=== PATIENT | male | born 1930 | race Caucasian/White ===

== ENCOUNTER 2020-02-20 00:48 | Inpatient (IN) | payer MEDICARE ==
[2020-02-20] VITALS (17 sets, daily range): BP systolic 88–146; BP diastolic 41–66
[~2020-02-20] VITALS: Ht 175.3 cm; Wt 81.8 kg
[~2020-02-20 00:48] MED LIST: ALBU18HF2 IH; ASPI81TA52 PO; FAMO-1 PO; FLO0.4C PO; FURO-150 PO; LATA2.5D6 OP; LOP25T PO; SIMV-42 PO; ZES10T PO
--- NOTE | 2020-02-20 01:00 | NUR ---
PT BROUGHT IN BY EMS WITH RIGHT SIDED FLANK PAIN . PT IS IN STAGE 1V CHRONIC KIDNEY DISEASE BUN 33 CR 2.43 , PT HAS A 18 GUAGE TO R AC AND 22 GUAGE TO L LOWER FOREARM BOTH FLUSHED WITH NS AND PATENT. UPON ARRIVAL PT DENIES ANY ABDOMINAL PAIN OR FLANK PAIN AT THIS TIME . SPOKE WITH DR VILLEGAS ABOUT PT NEEDING REPEAT LABS . PT IS TO BE SEEN AND assessed by md for further orders at this time .
--- NOTE | 2020-02-20 01:30 | NUR ---
pt is on 2 l o2 per NC SATS AT 93 % . PT HR 92 BP 131/67 RR 18 Pain 2/10 at this time .
[2020-02-20] MEDS ORDERED: WARF3TAB56 PO (02:28)
[2020-02-20] MEDS ORDERED: ALLO100T PO (02:28)
[2020-02-20] MEDS ORDERED: WARF-55 PO (02:28)
[2020-02-20] MEDS ORDERED: OMEG1CAP13 PO (02:28)
[2020-02-20] MEDS ORDERED: mag hydrox/Alum hydrox/simeth 30ml oral suspension PO PRN (03:30)
[2020-02-20] MEDS ORDERED: morphine 2 MG/ML inj. syringe IV PRN ×2 (03:30→17:35)
[2020-02-20] MEDS ORDERED: ondansetron/PF 4mg/2ml inj IV PRN ×2 (03:30→17:35)
[2020-02-20] MEDS: normal saline 1000ml 1,000 ML IV SCH ×2 (04:01→21:14)
[2020-02-20] MEDS ORDERED: famotidine 20mg tablet PO SCH (08:00)
[2020-02-20] MEDS: latanoprost 0.005% 2.5ml ophthalmic drops EACHEYE SCH (08:00)
[2020-02-20] MEDS ORDERED: CefTRIAXone/D5W-Rocephin 1gm 50 ML IV SCH (08:00)
[2020-02-20] MEDS ORDERED: furosemide 20MG tablet PO SCH (08:00)
[2020-02-20] MEDS: morphine 2 MG/ML inj. syringe IV PRN ×2 (08:46→15:48)
--- NOTE | 2020-02-20 09:33 | NUR ---
PAGER ID: [phone] MESSAGE: Yulisa [phone] re Mario Alberto Farrell in [id number]- [facility] called and said that blood cultures drawn there 02/18 turned positive after he left. gm- rods in aerobic bottle, one site only. Rocephin [address] [facility]
[2020-02-20 09:50] LABS: ALANINE AMINOTRANSFERASE 67 U/L (12-78); ALBUMIN 3.1 G/DL (3.4-5.0); ALKALINE PHOSPHATASE 98 IU/L (46-116); ANION GAP 13 (8-16); ASPARTATE AMINO TRANSFERASE 60 U/L (10-37); BILIRUBIN,TOTAL 0.6 MG/DL (0.1-1.0); BLOOD UREA NITROGEN 38 MG/DL (7-18); BUN/CREATININE RATIO 12.6 (5.4-32.0); CALCIUM 9.4 MG/DL (8.5-10.1); CHLORIDE 107 MMOL/L (99-107); CREATININE 3.01 MG/DL (0.60-1.10); GLUCOSE 102 MG/DL (70-104); POTASSIUM 4.5 MMOL/L (3.5-5.1); SODIUM 142 MMOL/L (135-145); TOTAL CARBON DIOXIDE 22.1 MMOL/L (24-32); TOTAL PROTEIN 6.2 G/DL (6.4-8.2); eGFR 20 ML/MIN
[2020-02-20] MEDS: allopurinol 100mg tablet PO SCH (10:26)
[2020-02-20] MEDS: metoprolol tartrate 25mg tablet PO SCH ×2 (10:27→21:03)
[2020-02-20 10:36] LABS: BASOPHILS # (AUTO) 0.1 X10'3 (0-0.2); BASOPHILS % (AUTO) 0.4 % (0-1); EOSINOPHILS % (AUTO) 0 % (0-6); LYMPHOCYTES # (AUTO) 0.5 X10'3 (1.1-4.8); LYMPHOCYTES % (AUTO) 3.3 % (21-51); MEAN CORPUSCULAR HEMOGLOBIN 31.2 PG (27.0-31.0); MEAN CORPUSCULAR HGB CONC 32.6 g/dL (33.0-36.5); MEAN CORPUSCULAR VOLUME 95.5 FL (78-98); MEAN PLATELET VOLUME 7.9 FL (7.4-10.4); MONOCYTES % (AUTO) 0.3 % (2-12); NEUTROPHILS # (AUTO) 14.6 X10'3 (1.8-7.7); PLATELET COUNT 144 X10'3 (140-440); RED CELL DISTRIBUTION WIDTH 15.3 % (11.5-14.5); WHITE BLOOD COUNT 15.2 X10'3 (4.5-11.0)
[2020-02-20] MEDS ORDERED: HYDROcodone/acetaminophen 5mg/325mg tablet PO PRN (14:25)
[2020-02-20] MEDS ORDERED: HYDROcodone/acetaminophen 10/325mg tab PO PRN (14:25)
--- NOTE | 2020-02-20 16:14 | NUR ---
PAGER ID: [phone] MESSAGE: Yulisa Onofre9 re Mr Farrell in [phone]- can you call me? BP decreased, 02 sat now 90 on 4
[2020-02-20] MEDS ORDERED: ipratropium/albuterol 3ml nebule ONE (17:06)
[2020-02-20] MEDS ORDERED: ringers solution, lacted 1,000 ML IV SCH (17:31)
[2020-02-20] MEDS ORDERED: morphine 4 MG/ML inj SYRINge IV PRN (17:35)
[2020-02-20] MEDS ORDERED: meperidine/PF 25mg/ml syringe IV PRN ×3 (17:35)
[2020-02-20] MEDS ORDERED: proCHLORperazine 10 MG/2 ml inj IV PRN (17:35)
[2020-02-20] MEDS ORDERED: iohexol 300 MG/1 ML 50ml polymer ONE (17:45)
[2020-02-20] MEDS ORDERED: fentaNYL/PF 50MCG/1 ML 2ML syringe ONE (17:53)
[2020-02-20] MEDS ORDERED: propofol inj 20 ML IV ONE (17:56)
[2020-02-20] MEDS: piperacillin/tazo 3.375gm/50ml 50 ML IV SCH (18:00)
[2020-02-20] MEDS ORDERED: sevoflurane 250ml liquid IH ONE (18:02)
[2020-02-20] MEDS ORDERED: ePHEDrine 50MG/ML INJ. ONE (18:27)
--- NOTE | 2020-02-20 18:48 | NUR ---
Patient in room ORTHO 4015. I have received report from Yulisa OVIEDO and had the opportunity to ask questions and assume patient care. Patient in OR at this time.
--- NOTE | 2020-02-20 18:56 | NUR ---
Received from OR via ORTHO BED WITH ILANNA , accompanied by Anesthesiologist SIDDHARTH and report given by Anesthesiolgist. PATIENT WITH DARKER URINE PRESENT IN CATHETER TUBING. VSS. PATIENT WITH 10L MASK ON WITH 96% SATURATIONS. SCDS DONNED. NS RUNNING AT 100. WAKENS TO COMMAND AND DENIES PAIN AT THIS TIME. Addendum: 02/20/20 at 1904 by Neptali Dunham RN, RN Amended: Links added.
--- NOTE | 2020-02-20 19:36 | NUR ---
PATIENT TAKEN TO WITH ALL BELONGINGS AND HOOKED UP TO MONITORS IN ROOM AND REPORT GIVEN TO RN WHO HAS TAKEN OVER PATIENT CARE. BED LOW, CALL LIGHT IN REACH, VSS, DRESSINGS CDI. URINE IN CATHETER IS STILL CLOUDY. VSS AT THIS TIME. ALERT AND ORIENTED AT THIS TIME. PREET EDEN PRESENT TO ACCEPT CARE OF THE PATIENT. CARE TURNED OVER AND ALL QUESTIONS ANSWERED. Addendum: 02/20/20 at 1955 by Neptali Dudley - PREET OVIEDO Amended: Links added.
--- NOTE | 2020-02-20 19:40 | NUR ---
Received report from Neptali OVIEDO from recovery. Call light placed within reach, bed in locked and low position.
[2020-02-20] MEDS: ipratropium/albuterol 3ml nebule NEB SCH (20:34)
[2020-02-20] MEDS ORDERED: warfarin 3mg tablet PO ONE (21:00)
[2020-02-20] MEDS ORDERED: warfarin 3mg tablet PO SCH (21:00)
[2020-02-20] MEDS: atorvastatin 10mg tablet PO SCH (21:02)
[2020-02-20] MEDS: famotidine 10mg tablet PO SCH (21:02)
[2020-02-20] MEDS: lactobacillus rhamnosus 10,000 MMU CELLS/CAPSULE PO SCH (21:02)
--- NOTE | 2020-02-20 23:50 | NUR ---
I heard a loud thump and found patient on the ground by his bed; he was on his but with both legs out in front of him. He had both SCD sleeves on and connected to the SCD machine. There was a pool of dark blood on the floor coming from his IV site to the right arm; his IV tubing had split apart, that is why the site was bleeding but the IV site was intact. I asked the patient why he got out of bed ,and he responded that he had to urinate; I discovered his F/C disconnected from the catheter tubing and bag. Cleaned the port of the F/C with chloreseptic disinfectant and placed new F/C tubing and bag and it is draining clear yellow urine. Vitals remain unchanged and he was assisted to the bed with two assist, once in bed we discovered two scrapes that where new to him. Large area to upper left back and smaller one to right lower back/ but. Pictures taken and wounds cleaned and dressings applied. Dr. Wright the night hospitalist was made aware and he asked that we check his orthostatic vitals and notify if positive and to hold b/p Meds for sbp<110.
[2020-02-21] VITALS (7 sets, daily range): BP systolic 93–139; BP diastolic 46–64
[2020-02-21] MEDS ORDERED: piperacillin/tazo 3.375gm/50ml 50 ML IV SCH
[2020-02-21] MEDS: ipratropium/albuterol 3ml nebule NEB SCH ×6 (00:04→23:00)
[2020-02-21] MEDS: piperacillin/tazo 3.375gm/50ml 50 ML IV SCH ×4 (00:26→23:36)
--- NOTE | 2020-02-21 06:39 | NUR ---
Problems reprioritized. Patient report given, questions answered & plan of care reviewed with Yulisa OVIEDO.
[2020-02-21 06:59] LABS: BASOPHILS % (AUTO) 0.3 % (0-1); EOSINOPHILS % (AUTO) 0.2 % (0-6); HEMATOCRIT 34.1 % (42.0-52.0); HEMOGLOBIN 11.1 g/dl (14.0-17.9); LYMPHOCYTES # (AUTO) 1.2 X10'3 (1.1-4.8); LYMPHOCYTES % (AUTO) 8.9 % (21-51); MEAN CORPUSCULAR HEMOGLOBIN 31.2 PG (27.0-31.0); MEAN CORPUSCULAR HGB CONC 32.7 g/dL (33.0-36.5); MEAN CORPUSCULAR VOLUME 95.6 FL (78-98); MEAN PLATELET VOLUME 8.9 FL (7.4-10.4); MONOCYTES # (AUTO) 0.6 X10'3 (0-0.9); MONOCYTES % (AUTO) 4.5 % (2-12); NEUTROPHILS # (AUTO) 11.8 X10'3 (1.8-7.7); NEUTROPHILS % (AUTO) 86.1 % (42-75); PLATELET COUNT 84 X10'3 (140-440); RED BLOOD COUNT 3.57 X10'6 (4.70-6.10); RED CELL DISTRIBUTION WIDTH 15.7 % (11.5-14.5); WHITE BLOOD COUNT 13.7 X10'3 (4.5-11.0)
[2020-02-21 07:13] LABS: ALANINE AMINOTRANSFERASE 39 U/L (12-78); ALBUMIN 2.3 G/DL (3.4-5.0); ALBUMIN/GLOBULIN RATIO 0.8 (1.1-1.5); ALKALINE PHOSPHATASE 81 IU/L (46-116); ANION GAP 11 (8-16); ASPARTATE AMINO TRANSFERASE 31 U/L (10-37); BILIRUBIN,TOTAL 0.5 MG/DL (0.1-1.0); BLOOD UREA NITROGEN 50 MG/DL (7-18); BUN/CREATININE RATIO 12.7 (5.4-32.0); CALCIUM 8.7 MG/DL (8.5-10.1); CHLORIDE 108 MMOL/L (99-107); CREATININE 3.94 MG/DL (0.60-1.10); GLUCOSE 85 MG/DL (70-104); POTASSIUM 4.7 MMOL/L (3.5-5.1); SODIUM 141 MMOL/L (135-145); TOTAL CARBON DIOXIDE 22.2 MMOL/L (24-32); TOTAL PROTEIN 5.1 G/DL (6.4-8.2); eGFR 15 ML/MIN
[2020-02-21 07:39] LABS: ANISOCYTOSIS 1+; PLATELET ESTIMATE DECREASED; TOTAL CELLS COUNTED 100
[2020-02-21 07:40] LABS: TOXIC GRANULATION 2+; TOXIC VACUOLATION 1+
[2020-02-21] MEDS: latanoprost 0.005% 2.5ml ophthalmic drops EACHEYE SCH (08:39)
[2020-02-21] MEDS: lactobacillus rhamnosus 10,000 MMU CELLS/CAPSULE PO SCH ×2 (08:41→20:41)
[2020-02-21] MEDS: allopurinol 100mg tablet PO SCH (08:42)
[2020-02-21] MEDS: metoprolol tartrate 25mg tablet PO SCH ×2 (08:42→20:42)
[2020-02-21] MEDS: famotidine 10mg tablet PO SCH ×2 (08:43→20:41)
[2020-02-21] MEDS ORDERED: furosemide 20MG tablet PO SCH (08:58)
[2020-02-21] MEDS: furosemide 20MG tablet PO SCH (12:48)
[2020-02-21] MEDS: normal saline 1000ml 1,000 ML IV SCH (17:10)
--- NOTE | 2020-02-21 18:40 | NUR ---
Patient in room ORTHO 4015. I have received report from Yulisa OVIEDO and had the opportunity to ask questions and assume patient care.
[2020-02-21] MEDS: atorvastatin 10mg tablet PO SCH (20:42)
[2020-02-22 06:00] VITALS: BP 132/70
[2020-02-22 06:36] LABS: ALANINE AMINOTRANSFERASE 31 U/L (12-78); ALBUMIN 2.3 G/DL (3.4-5.0); ALBUMIN/GLOBULIN RATIO 0.7 (1.1-1.5); ALKALINE PHOSPHATASE 88 IU/L (46-116); ANION GAP 11 (8-16); ASPARTATE AMINO TRANSFERASE 24 U/L (10-37); BILIRUBIN,TOTAL 0.7 MG/DL (0.1-1.0); BLOOD UREA NITROGEN 52 MG/DL (7-18); BUN/CREATININE RATIO 13.7 (5.4-32.0); CALCIUM 9.2 MG/DL (8.5-10.1); CHLORIDE 107 MMOL/L (99-107); GLUCOSE 98 MG/DL (70-104); POTASSIUM 4.3 MMOL/L (3.5-5.1); SODIUM 138 MMOL/L (135-145); TOTAL CARBON DIOXIDE 20.5 MMOL/L (24-32); TOTAL PROTEIN 5.5 G/DL (6.4-8.2); eGFR 15 ML/MIN
--- NOTE | 2020-02-22 06:39 | NUR ---
Problems reprioritized. Patient report given, questions answered & plan of care reviewed with Yulisa OVIEDO.
[2020-02-22 06:43] LABS: BASOPHILS % (AUTO) 0.4 % (0-1); EOSINOPHILS # (AUTO) 0.1 X10'3 (0-0.9); EOSINOPHILS % (AUTO) 1.3 % (0-6); HEMATOCRIT 32.3 % (42.0-52.0); HEMOGLOBIN 10.9 g/dl (14.0-17.9); LYMPHOCYTES # (AUTO) 0.7 X10'3 (1.1-4.8); MEAN CORPUSCULAR HEMOGLOBIN 31.7 PG (27.0-31.0); MEAN CORPUSCULAR HGB CONC 33.7 g/dL (33.0-36.5); MEAN CORPUSCULAR VOLUME 94.2 FL (78-98); MONOCYTES # (AUTO) 0.4 X10'3 (0-0.9); MONOCYTES % (AUTO) 4.3 % (2-12); NEUTROPHILS # (AUTO) 7.8 X10'3 (1.8-7.7); PLATELET COUNT 75 X10'3 (140-440); RED BLOOD COUNT 3.42 X10'6 (4.70-6.10); RED CELL DISTRIBUTION WIDTH 15.4 % (11.5-14.5); WHITE BLOOD COUNT 9.1 X10'3 (4.5-11.0)
[2020-02-22] MEDS: ipratropium/albuterol 3ml nebule NEB SCH ×5 (07:32→23:38)
[2020-02-22] MEDS: magnesium hydroxide 30ml (MOM) UD suspension PO PRN (08:29)
[2020-02-22] MEDS: latanoprost 0.005% 2.5ml ophthalmic drops EACHEYE SCH (08:36)
[2020-02-22] MEDS: piperacillin/tazo 3.375gm/50ml 50 ML IV SCH ×3 (08:36→23:58)
[2020-02-22] MEDS: lactobacillus rhamnosus 10,000 MMU CELLS/CAPSULE PO SCH ×2 (08:36→20:13)
[2020-02-22] MEDS: famotidine 10mg tablet PO SCH ×2 (08:37→20:14)
[2020-02-22] MEDS: allopurinol 100mg tablet PO SCH (08:37)
[2020-02-22] MEDS: furosemide 20MG tablet PO SCH (08:37)
[2020-02-22] MEDS: metoprolol tartrate 25mg tablet PO SCH ×2 (08:38→20:14)
[2020-02-22 08:43] LABS: ANISOCYTOSIS 1+; PLATELET ESTIMATE DECREASED; TOTAL CELLS COUNTED 100; TOXIC GRANULATION 1+
[2020-02-22 08:54] VITALS: BP 150/70
[2020-02-22 09:55] VITALS: BP 136/58
[2020-02-22] MEDS: docusate sod 100mg capsule PO SCH ×2 (12:25→20:14)
--- NOTE | 2020-02-22 13:00 | NUR ---
PAGER ID: [phone] MESSAGE: Yulisa 7925 Mario Alberto Flores in [id number]- c/o pain in R hip, he fell on it 2 nights ago, xray? also increased penile/scrotal edema since the a.m.
[2020-02-22] MEDS: normal saline 1000ml 1,000 ML IV SCH ×2 (15:27→18:30)
[2020-02-22] MEDS ORDERED: bisacodyl 10mg suppository rectal RC PRN (17:10)
[2020-02-22 18:00] VITALS: BP 142/61
--- NOTE | 2020-02-22 18:17 | NUR ---
Patient in room ORTHO 4015. I have received report from Yulisa OVIEDO and had the opportunity to ask questions and assume patient care.
--- NOTE | 2020-02-22 18:47 | NUR ---
called Dr Escalona to make her aware of the pt's penile edema that started this a.m. I showed Dr Castillo this afternoon and he asked that I make the urologist aware. Dr Escalona states that she will see the pt in the am and to watch it for now.
[2020-02-22] MEDS: atorvastatin 10mg tablet PO SCH (20:14)
[2020-02-22 22:00] VITALS: BP 137/53
--- NOTE | 2020-02-23 05:07 | NUR ---
Spoke with patient last night about his constipation and offered a suppository. Patient stated he wanted it this morning. Went in to offer suppository and patient states, "I didn't sleep well can we do it later in the morning." Will report this to oncoming shift.
[2020-02-23 06:00] VITALS: BP 146/62
--- NOTE | 2020-02-23 06:18 | NUR ---
Problems reprioritized. Patient report given, questions answered & plan of care reviewed with Carmen OVIEDO.
--- NOTE | 2020-02-23 06:30 | NUR ---
received report from lissette krueger
[2020-02-23 06:35] LABS: BASOPHILS % (AUTO) 0.6 % (0-1); EOSINOPHILS # (AUTO) 0.3 X10'3 (0-0.9); EOSINOPHILS % (AUTO) 3.2 % (0-6); HEMATOCRIT 31.9 % (42.0-52.0); HEMOGLOBIN 10.6 g/dl (14.0-17.9); LYMPHOCYTES # (AUTO) 0.6 X10'3 (1.1-4.8); LYMPHOCYTES % (AUTO) 7.7 % (21-51); MEAN CORPUSCULAR HEMOGLOBIN 30.8 PG (27.0-31.0); MEAN CORPUSCULAR HGB CONC 33.1 g/dL (33.0-36.5); MEAN PLATELET VOLUME 8.5 FL (7.4-10.4); MONOCYTES # (AUTO) 0.4 X10'3 (0-0.9); MONOCYTES % (AUTO) 4.6 % (2-12); NEUTROPHILS # (AUTO) 6.8 X10'3 (1.8-7.7); NEUTROPHILS % (AUTO) 83.9 % (42-75); PLATELET COUNT 91 X10'3 (140-440); RED BLOOD COUNT 3.43 X10'6 (4.70-6.10); RED CELL DISTRIBUTION WIDTH 15.4 % (11.5-14.5); WHITE BLOOD COUNT 8.1 X10'3 (4.5-11.0)
[2020-02-23 06:53] LABS: ALANINE AMINOTRANSFERASE 38 U/L (12-78); ALBUMIN 2.2 G/DL (3.4-5.0); ALBUMIN/GLOBULIN RATIO 0.7 (1.1-1.5); ALKALINE PHOSPHATASE 94 IU/L (46-116); ANION GAP 8 (8-16); ASPARTATE AMINO TRANSFERASE 26 U/L (10-37); BLOOD UREA NITROGEN 44 MG/DL (7-18); BUN/CREATININE RATIO 13.5 (5.4-32.0); CALCIUM 9.6 MG/DL (8.5-10.1); CHLORIDE 109 MMOL/L (99-107); CREATININE 3.25 MG/DL (0.60-1.10); GLUCOSE 95 MG/DL (70-104); POTASSIUM 4.3 MMOL/L (3.5-5.1); SODIUM 141 MMOL/L (135-145); TOTAL CARBON DIOXIDE 24.1 MMOL/L (24-32); TOTAL PROTEIN 5.5 G/DL (6.4-8.2); eGFR 18 ML/MIN
[2020-02-23 07:27] LABS: ANISOCYTOSIS 1+; PLATELET ESTIMATE DECREASED; POLYCHROMASIA 1+; TOTAL CELLS COUNTED 100; TOXIC GRANULATION 1+
[2020-02-23] MEDS: ipratropium/albuterol 3ml nebule NEB SCH ×5 (07:27→23:00)
[2020-02-23] MEDS: docusate sod 100mg capsule PO SCH ×2 (07:30→20:00)
[2020-02-23] MEDS: lactobacillus rhamnosus 10,000 MMU CELLS/CAPSULE PO SCH ×2 (07:30→20:09)
[2020-02-23] MEDS: furosemide 20MG tablet PO SCH (07:31)
[2020-02-23] MEDS: metoprolol tartrate 25mg tablet PO SCH ×2 (07:32→20:10)
[2020-02-23] MEDS: allopurinol 100mg tablet PO SCH (07:33)
[2020-02-23] MEDS: famotidine 10mg tablet PO SCH ×2 (07:33→21:20)
[2020-02-23] MEDS: magnesium hydroxide 30ml (MOM) UD suspension PO PRN (07:34)
[2020-02-23] MEDS: latanoprost 0.005% 2.5ml ophthalmic drops EACHEYE SCH (07:36)
[2020-02-23] MEDS: piperacillin/tazo 3.375gm/50ml 50 ML IV SCH (07:37)
[2020-02-23 10:00] VITALS: BP 153/60
--- NOTE | 2020-02-23 11:26 | NUR ---
Student documentation: I have reviewed all interventions, assessments performed and documented by Mamie DESHPANDE
[2020-02-23] MEDS ORDERED: piperacillin/tazo 3.375gm/50ml 50 ML IV SCH (11:53)
[2020-02-23] MEDS: acetaminophen 325mg tablet PO PRN ×2 (12:32→21:19)
--- NOTE | 2020-02-23 12:58 | NUR ---
nursing students stood pt and walked pt around bed to sit in chair
--- NOTE | 2020-02-23 15:09 | NUR ---
Student documentation: I have reviewed and agree with all interventions, assessments performed and documented by Speedy Gonzalez [facility].
[2020-02-23] MEDS: normal saline 1000ml 1,000 ML IV SCH (17:08)
[2020-02-23 18:00] VITALS: BP 159/64
[2020-02-23] MEDS ORDERED: levoFLOXACIN 750MG TABLET PO SCH (18:00)
--- NOTE | 2020-02-23 18:13 | NUR ---
GAVE REPORT TO PREET WALSH
[2020-02-23] MEDS: atorvastatin 10mg tablet PO SCH (20:10)
[2020-02-23] MEDS ORDERED: warfarin 1mg tablet PO ONE (21:00)
[2020-02-23 22:00] VITALS: BP 158/72
[2020-02-24 06:00] VITALS: BP 159/68
[2020-02-24 07:02] LABS: BASOPHILS % (AUTO) 0.6 % (0-1); EOSINOPHILS # (AUTO) 0.1 X10'3 (0-0.9); EOSINOPHILS % (AUTO) 1.5 % (0-6); HEMATOCRIT 30.6 % (42.0-52.0); HEMOGLOBIN 10.2 g/dl (14.0-17.9); LYMPHOCYTES # (AUTO) 0.7 X10'3 (1.1-4.8); LYMPHOCYTES % (AUTO) 10.2 % (21-51); MEAN CORPUSCULAR HEMOGLOBIN 31.1 PG (27.0-31.0); MEAN CORPUSCULAR HGB CONC 33.4 g/dL (33.0-36.5); MEAN CORPUSCULAR VOLUME 93.1 FL (78-98); MEAN PLATELET VOLUME 8.1 FL (7.4-10.4); MONOCYTES # (AUTO) 0.4 X10'3 (0-0.9); MONOCYTES % (AUTO) 6.1 % (2-12); NEUTROPHILS # (AUTO) 5.9 X10'3 (1.8-7.7); NEUTROPHILS % (AUTO) 81.6 % (42-75); PLATELET COUNT 105 X10'3 (140-440); RED BLOOD COUNT 3.28 X10'6 (4.70-6.10); WHITE BLOOD COUNT 7.2 X10'3 (4.5-11.0)
[2020-02-24 07:25] LABS: ALANINE AMINOTRANSFERASE 35 U/L (12-78); ALBUMIN 2.4 G/DL (3.4-5.0); ALBUMIN/GLOBULIN RATIO 0.6 (1.1-1.5); ALKALINE PHOSPHATASE 105 IU/L (46-116); ANION GAP 9 (8-16); ASPARTATE AMINO TRANSFERASE 27 U/L (10-37); BILIRUBIN,TOTAL 0.8 MG/DL (0.1-1.0); BLOOD UREA NITROGEN 35 MG/DL (7-18); BUN/CREATININE RATIO 11.9 (5.4-32.0); CALCIUM 10.1 MG/DL (8.5-10.1); CHLORIDE 108 MMOL/L (99-107); CREATININE 2.94 MG/DL (0.60-1.10); GLUCOSE 99 MG/DL (70-104); POTASSIUM 4.1 MMOL/L (3.5-5.1); SODIUM 140 MMOL/L (135-145); TOTAL PROTEIN 6.1 G/DL (6.4-8.2); eGFR 20 ML/MIN
[2020-02-24 08:04] LABS: TOTAL CELLS COUNTED 100; TOXIC GRANULATION 1+
[2020-02-24 08:05] LABS: PLATELET ESTIMATE DECREASED
[2020-02-24] MEDS: ipratropium/albuterol 3ml nebule NEB SCH (08:07)
[2020-02-24] MEDS: allopurinol 100mg tablet PO SCH (09:14)
[2020-02-24] MEDS: lactobacillus rhamnosus 10,000 MMU CELLS/CAPSULE PO SCH (09:14)
[2020-02-24] MEDS: famotidine 10mg tablet PO SCH (09:15)
[2020-02-24] MEDS: furosemide 20MG tablet PO SCH (09:15)
[2020-02-24] MEDS: docusate sod 100mg capsule PO SCH (09:15)
[2020-02-24] MEDS: metoprolol tartrate 25mg tablet PO SCH (09:17)
[2020-02-24 10:00] VITALS: BP 137/69
[2020-02-24] MEDS ORDERED: LEVO750T46 PO (12:26)
--- NOTE | 2020-02-24 12:37 | NUR ---
Spoke with on the phone, she plans to call me at 1400 as she leaves [place] to [facility] pickler patient. Answered her questions and let her know discharge instructions would be printed out for her as visitors aren't allowed in the hospital.
--- NOTE | 2020-02-24 13:51 | NUR ---
Picatures taken within 24 hours of discharge Addendum: 02/24/20 at 1352 by Catina Contreras RN Amended: Links added.
--- NOTE | 2020-02-27 14:39 | NUR ---
Case Management DC follow up: Spoke w/pt & pt spouse, Ofe via telephone 02/27/20. s/p: R flank pain, R uretal stent placement/cystoscopy. Pt Reports:"feeling ok except I have a broken arm, didn't hurt until day or two after I came home, I think it happened when I fell at hospital, hairline, reached over to turn on light, felt a "pop"". Spouse responded stating pt is "bruised badly all along R side, purple coloring". Fall documented 02/20/20. Pt called PCP Madeline, xray confirmed broken elbow per pt. Referred to Orthopedic surgeon/Yony, awaiting return call. Pt states he is not having R flank pain, urine has sediment, denies pink tinge/blood in urine, urinating regularly. Denies: Acute/continuous CP, emergent SOB, resp distress, orthopnea, dyspnea, N/V, hematemesis, weakness, vertigo, syncope episodes, orthostatic hypotension, LEVY, blurry vision, s/s stroke/FAST, dysphagia, bladder pain, dysuria, polyuria, hematuria, retention, abd pain/distention, hematochezia, melena, unexplained bruising, bleeding, fever, chills. Verbalizes understanding of new Rx: Levaquin, why prescribed; continues/resumes current Rx as ordered, denies ase r/t polypharmacy. Verbalizes compliance w/aftercare. Verbalizes understanding of s/s that warrant 9-11/ER visit for further evaluation. Pt acknowledges need to schedule/confirm/keep follow up appt w/PCP/Madeline (info previously documented above). Pt spouse purchased sling, pt does not like, does not like. Dr Correa office closed so unable to retrieve a proper sling. Was not clear if pt saw Dr Ewing in person or just a telephone conversation. Pt spouse LM w/Dr Bhakta office, will call again after this conversation. [facility] intake/assessment 02/27/20. Needs met, questions/concerns addressed at DC; No further questions/concerns r/t recent hospital stay and/or DC status at this time.
== END 2020-02-24 14:20 | disposition home health service (06) | DRG 853 ==
LOC: ER 00:48 → ED HOLD 03:27 → ORTHO 4S 07:15
PROVIDERS: ADMIT Internal Medicine; ATTEND Family Medicine
PROC: BT1D1ZZ Fluoroscopy of Right Kidney, Ureter and Bladder using Low Osmolar Contrast (ICD-10-PCS; 2020-02-20)
PROC: 0T768DZ Dilation of Right Ureter with Intraluminal Device, Via Natural or Artificial Opening Endoscopic (ICD-10-PCS; principal; 2020-02-20 18:02)
DX: A41.89 Other specified sepsis (principal); J96.01 Acute respiratory failure with hypoxia; N13.6 Pyonephrosis; Z16.11 Resistance to penicillins; N18.9 Chronic kidney disease, unspecified; M10.9 Gout, unspecified; I95.9 Hypotension, unspecified; I48.91 Unspecified atrial fibrillation; E78.00 Pure hypercholesterolemia, unspecified; B96.1 Klebsiella pneumoniae [K. pneumoniae] as the cause of diseases classified elsewhere; I12.9 Hypertensive chronic kidney disease with stage 1 through stage 4 chronic kidney disease, or unspecified chronic kidney disease; E78.5 Hyperlipidemia, unspecified; I25.10 Atherosclerotic heart disease of native coronary artery without angina pectoris; N48.89 Other specified disorders of penis; Z87.442 Personal history of urinary calculi; Z95.1 Presence of aortocoronary bypass graft; Z85.46 Personal history of malignant neoplasm of prostate; Z90.79 Acquired absence of other genital organ(s); Z88.2 Allergy status to sulfonamides; Z88.8 Allergy status to other drugs, medicaments and biological substances; Z79.899 Other long term (current) drug therapy
CPT/HCPCS: 36415; 71045; 73502; 74450; 76000; 80053; 83605; 85007; 85025; 85610; 87040; 87081; 93005; 94640; 94760; 97116; 97161; 97530; 99285; A4338; A4618; C1758; C1769; C2617; G0378; J0696; J2270; J2543; J2704; J3010; J7030; Q9967

== ENCOUNTER 2020-03-16 05:19 | Day surgery (SDC) | payer MEDICARE ==
[2020-03-09 15:10] LABS: EOSINOPHILS # (AUTO) 0.3 X10'3 (0-0.9); MONOCYTES # (AUTO) 0.5 X10'3 (0-0.9); RED CELL DISTRIBUTION WIDTH 16.7 % (11.5-14.5)
[2020-03-09 15:12] LABS: BASOPHILS # (AUTO) 0.1 X10'3 (0-0.2); BASOPHILS % (AUTO) 1.1 % (0-1); EOSINOPHILS % (AUTO) 3.9 % (0-6); LYMPHOCYTES # (AUTO) 1.5 X10'3 (1.1-4.8); LYMPHOCYTES % (AUTO) 20.1 % (21-51); MEAN CORPUSCULAR HEMOGLOBIN 31.6 PG (27.0-31.0); MEAN CORPUSCULAR VOLUME 92.8 FL (78-98); MEAN PLATELET VOLUME 7.5 FL (7.4-10.4); MONOCYTES % (AUTO) 7.1 % (2-12); NEUTROPHILS # (AUTO) 5.1 X10'3 (1.8-7.7); NEUTROPHILS % (AUTO) 67.8 % (42-75); PRE OP HEMATOCRIT 33.1 % (42.0-52.0); PRE OP HEMOGLOBIN 11.3 g/dL (14.0-17.9); PRE OP PLATELET COUNT 295 X10'3 (140-440); RED BLOOD COUNT 3.57 X10'6 (4.70-6.10)
[2020-03-09 15:24] LABS: ALBUMIN 3.2 G/DL (3.4-5.0); ALBUMIN/GLOBULIN RATIO 0.8 (1.1-1.5); ALKALINE PHOSPHATASE 111 IU/L (46-116); BLOOD UREA NITROGEN 29 MG/DL (7-18); BUN/CREATININE RATIO 12.4 (5.4-32.0); CALCIUM 9.6 MG/DL (8.5-10.1); CHLORIDE 103 MMOL/L (99-107); CREATININE 2.33 MG/DL (0.60-1.10); PRE OP ALT 45 U/L (30-65); PRE OP ANION GAP 9 (8-16); PRE OP AST 27 U/L (10-37); PRE OP BILIRUB, TOTAL 0.8 MG/DL (0.0-1.0); PRE OP GLUCOSE 107 MG/DL (70-104); PRE OP SODIUM 138 MMOL/L (135-145); TOTAL PROTEIN 7.2 G/DL (6.4-8.2); eGFR 27 ML/MIN
[~2020-03-16] VITALS: Ht 175.3 cm; Wt 81.0 kg
[2020-03-16] VITALS (21 sets, daily range): BP systolic 117–164; BP diastolic 47–82
[~2020-03-16 05:19] MED LIST changes: -ALBU18HF2 IH; +ALLO100T PO; -ASPI81TA52 PO; -FLO0.4C PO; +OMEG1CAP13 PO; +WARF3TAB56 PO; -ZES10T PO; +ringers solution, lacted 1,000 ML IV SCH
[2020-03-16] MEDS ORDERED: DOCUMENT DATE & TIME OF BETA-BLOCKER PO ONE (05:30)
[2020-03-16] MEDS ORDERED: ceFAZolin/D5W- 1GM premix 50 ML IV ONE (05:30)
[2020-03-16] MEDS ORDERED: famotidine 20mg tablet PO ONE (05:30)
[2020-03-16] MEDS ORDERED: metoprolol tartrate 25mg tablet PO SCH (06:19)
[2020-03-16] MEDS ORDERED: iohexol 300 MG/1 ML 50ml polymer ONE (06:41)
[2020-03-16 07:19] LABS: PRE OP PARTIAL THROMB. TIME 27 SECONDS (22-32)
[2020-03-16] MEDS ORDERED: sevoflurane 250ml liquid IH ONE (07:24)
[2020-03-16] MEDS ORDERED: fentaNYL/PF 50MCG/1 ML 2ML syringe ONE (07:27)
[2020-03-16] MEDS ORDERED: propofol inj 20 ML IV ONE (07:27)
[2020-03-16] MEDS ORDERED: midazolam 2 mg/2 ml injection ONE (07:27)
[2020-03-16] MEDS ORDERED: ePHEDrine 50MG/ML INJ. ONE (07:52)
[2020-03-16] MEDS ORDERED: ondansetron/PF 4mg/2ml inj IV PRN (07:55)
[2020-03-16] MEDS ORDERED: ringers solution, lacted 1,000 ML IV SCH (07:55)
[2020-03-16] MEDS ORDERED: meperidine/PF 25mg/ml syringe IV PRN ×3 (07:55)
[2020-03-16] MEDS ORDERED: morphine 2 MG/ML inj. syringe IV PRN (07:55)
[2020-03-16] MEDS ORDERED: proCHLORperazine 10 MG/2 ml inj IV PRN (07:55)
[2020-03-16] MEDS ORDERED: morphine 4 MG/ML inj SYRINge IV PRN (07:55)
--- NOTE | 2020-03-16 08:47 | NUR ---
Received from OR via [facility], accompanied by Anesthesiologist DR MESSINA and report given by Anesthesiologist. PT DROWSY, VSS, NO S/S OF DISTRESS/DISCOMFORT. Addendum: 03/16/20 at 0938 by Shirlene Low RN Amended: Links added.
--- NOTE | 2020-03-16 11:50 | NUR ---
BLADDER SCANNED FOR 290-301 ML URINE, PT UP TO VOID, WAS ABLE TO VOID 45 ML BURGUNDY URINE, CALL INTO DR THOMPSON, UPDATED, ORDERS TO GIVE PT 125ML/HR NS FOR UP TO 2 HOURS AND HAVE PT DRINK MORE FLUIDS TO SEE IF PT IS ABLE TO VOID MORE, WILL CONTINUE TO MONITOR AND CALL W/RESULTS. Addendum: 03/16/20 at 1218 by Shirlene Low RN Amended: Links added.
--- NOTE | 2020-03-16 14:07 | NUR ---
PT WAS ABLE TO VOID 490 ML OF LIGHT BURGUNDY URINE, PRV WAS 0, CALL INTO DR THOMPSON, UPDATED, OK TO D/C PT TO HOME, D/C INSTRUCTIONS GIVEN AND GONE OVER W/PT WHO VERBALIZED UNDERSTANDING, PT D /CD TO HOME VIA W/C TO PRIVATE VEHICLE W/O INCIDENT. Addendum: 03/16/20 at 1617 by Shirlene Low RN Amended: Links added.
== END 2020-03-16 14:07 | disposition home or self-care (01) ==
LOC: PAS 05:19
PROVIDERS: ATTEND Student in an Organized Health Care Education/Training Program
DX: N13.2 Hydronephrosis with renal and ureteral calculous obstruction (principal); M10.9 Gout, unspecified; I10 Essential (primary) hypertension; I25.2 Old myocardial infarction; I25.10 Atherosclerotic heart disease of native coronary artery without angina pectoris; E78.2 Mixed hyperlipidemia; Z95.1 Presence of aortocoronary bypass graft; Z98.890 Other specified postprocedural states; Z90.79 Acquired absence of other genital organ(s); Z86.718 Personal history of other venous thrombosis and embolism; Z88.2 Allergy status to sulfonamides; Z88.8 Allergy status to other drugs, medicaments and biological substances; Z79.01 Long term (current) use of anticoagulants; Z85.46 Personal history of malignant neoplasm of prostate; Z20.828 Contact with and (suspected) exposure to other viral communicable diseases
CPT/HCPCS: 36415; 52332; 52352; 71046; 76000; 80053; 82948; 85025; 85610; 85730; 87088; 87635; C1769; C2617; J0690; J2175; J2250; J2704; J3010; J7030; Q9967; A4618; J7120